=== PATIENT | female | born 1990 | race Asian ===

== ENCOUNTER 2017-05-14 08:13 | Outpatient (CLI) | payer BC ==
[2017-05-14 08:46] LABS: Urine Drugs of Abuse Note Disclamer
[2017-05-14 08:57] LABS: Bacteria,Urine 1+ /HPF (Negative); Basophils % (Auto) 0.3 % (0.0-1.8); Bilirubin,Urine NEG (Negative); Blood,Urine SM (Negative); Eosinophils % (Auto) 1.6 % (0.0-4.3); Hematocrit 43.1 % (30.3-42.9); Hemoglobin 14.3 gm/dl (10.1-14.3); Ketones,Urine NEG (Negative); Leukocyte Esterase,Urine NEG (Negative); Mean Corpuscular HGB Conc 33 % (30-34); Mean Corpuscular Hemoglobin 29 pg (28-32); Mean Corpuscular Volume 87 fl (79-97); Nitrite,Urine NEG (Negative); Platelet Count 268 K/mm3 (140-440); Protein,Urine <15 mg/dL mg/dL (Negative); RBC,Urine < 1.0 /HPF (0.0-6.0); Red Blood Count 4.98 M/mm3 (3.65-5.03); Red Cell Distribution Width 13.6 % (13.2-15.2); Urobilinogen,Urine < 2.0 mg/dL (<2.0); WBC,Urine < 1.0 /HPF (0.0-6.0); White Blood Count 8.3 K/mm3 (4.5-11.0)
[2017-05-14 09:14] LABS: Albumin/Globulin Ratio 1.3 %; Alkaline Phosphatase 62 units/L (35-129); BUN/Creatinine Ratio 16; Blood Urea Nitrogen 11 mg/dL (7-17); Calcium 9.4 mg/dL (8.4-10.2); Carbon Dioxide 21 mmol/L (22-30); Chloride 101.7 mmol/L (98-107); Cholesterol 184 mg/dL (50-199); Glucose 83 mg/dL (65-100); HDL Cholesterol 51 mg/dL (40-59); LDL Cholesterol,Direct 110 mg/dL (50-130); Sodium 136 mmol/L (137-145); Total Protein 7.2 g/dL (6.3-8.2); Triglycerides 117 mg/dL (2-149)
[2017-05-14 11:35] LABS: HIV-1 Antigen p24 Non React (Non React); HIVR-1/2 Ab Non React (Non React)
[2017-05-14 13:13] LABS: Alanine Aminotransferase 11 units/L (7-56); Anion Gap 20 mmol/L; Potassium 4.7 mmol/L (3.6-5.0)
[2017-05-14 19:32] LABS: Alanine Aminotransferase 11 units/L (7-56); Albumin 4.3 g/dL (3.9-5); Albumin/Globulin Ratio 1.6 %; Alkaline Phosphatase 66 units/L (35-129)
[2017-05-14 19:50] LABS: Bilirubin,Direct < 0.2 mg/dL (0-0.2); Bilirubin,Indirect 0.6 mg/dL
== END 2017-05-14 08:14 | disposition home or self-care (01) ==
LOC: LAB 08:13
PROVIDERS: ATTEND Family Medicine
DX: Z11.3 Encounter for screening for infections with a predominantly sexual mode of transmission (principal); Z00.01 Encounter for general adult medical examination with abnormal findings; B34.9 Viral infection, unspecified; N92.6 Irregular menstruation, unspecified; J06.0 Acute laryngopharyngitis; Z79.899 Other long term (current) drug therapy
CPT/HCPCS: 36415; 80053; 80061; 80074; 80307; 81001; 81025; 83036; 84443; 85025; 86592; 86705; 86709; 86900; 86901; 87806

== ENCOUNTER 2018-04-05 11:05 | Outpatient (CLI) | payer BC ==
[2018-04-05 11:41] LABS: Bacteria,Urine 1+ /HPF (Negative); Bilirubin,Urine NEG (Negative); Blood,Urine NEG (Negative); Color,Urine Colorless (Yellow); Mucus,Urine FEW /HPF; Protein,Urine <15 mg/dL mg/dL (Negative); Urobilinogen,Urine < 2.0 mg/dL (<2.0); WBC,Urine < 1.0 /HPF (0.0-6.0)
== END 2018-04-05 11:06 | disposition home or self-care (01) ==
LOC: LAB 11:05
PROVIDERS: ATTEND Family Medicine
DX: N39.0 Urinary tract infection, site not specified (principal); R80.9 Proteinuria, unspecified
CPT/HCPCS: 81001

== ENCOUNTER 2018-04-08 11:37 | Outpatient (CLI) | payer BC ==
[2018-04-08 12:13] LABS: Basophils % (Auto) 0.3 % (0.0-1.8); Eosinophils # (Auto) 0.1 K/mm3 (0.0-0.4); Eosinophils % (Auto) 1.5 % (0.0-4.3); Hematocrit 42.7 % (30.3-42.9); Hemoglobin 14.7 gm/dl (10.1-14.3); Lymphocytes % (Auto) 32.1 % (13.4-35.0); Mean Corpuscular HGB Conc 35 % (30-34); Mean Corpuscular Hemoglobin 29 pg (28-32); Mean Corpuscular Volume 84 fl (79-97); Monocytes # (Auto) 0.5 K/mm3 (0.0-0.8); Monocytes % (Auto) 5.6 % (0.0-7.3); Platelet Count 330 K/mm3 (140-440); Red Blood Count 5.07 M/mm3 (3.65-5.03); Red Cell Distribution Width 13.8 % (13.2-15.2)
[2018-04-08 12:29] LABS: Alanine Aminotransferase 9 units/L (7-56); Albumin 4.4 g/dL (3.9-5); BUN/Creatinine Ratio 13; Blood Urea Nitrogen 10 mg/dL (7-17); Calcium 9.6 mg/dL (8.4-10.2); Hemolysis Index 2
[2018-04-08 12:31] LABS: Erythrocyte Sedimentation Rate 1 mm/Hr (0-20)
[2018-04-12 19:41] LABS: ANA Screen, IFA Negative (Negative)
== END 2018-04-08 11:38 | disposition home or self-care (01) ==
LOC: LAB 11:37
PROVIDERS: ATTEND Family Medicine
DX: C25.9 Malignant neoplasm of pancreas, unspecified (principal)
CPT/HCPCS: 36415; 80053; 85025; 85652; 86021; 86038; 86140; 86618